=== PATIENT | male | born 1945 | race African-American/Black ===

== ENCOUNTER 2018-07-25 09:28 | Emergency (ER) | payer OTHER, BC ==
[~2018-07-25] VITALS: Ht 180.3 cm; Wt 106.6 kg
[~2018-07-25 09:28] MED LIST: AMOXICILLIN 50500 M1 PO; DEPAKOTE; LAMICTAL; NEURONTIN 300300 M1 PO; NORCO 5-325 TA1 EACH PO
[2018-07-25 09:42] VITALS: BP 137/77
[2018-07-25] MEDS ORDERED: LAMICTAL100 MG PO (09:45)
[2018-07-25] MEDS ORDERED: NAPROSYN500 MG PO (10:15)
== END 2018-07-25 10:26 | disposition home or self-care (01) ==
LOC: ER 09:28
DX: M71.22 Synovial cyst of popliteal space [Baker], left knee (principal); Z91.041 Radiographic dye allergy status